=== PATIENT | male | born 1990 | race Two or more races ===

== ENCOUNTER 2025-05-11 13:20 | Day surgery (SDC) | payer BC, SELFPAY ==
--- NOTE | 2025-05-09 15:52 | EKG_ITS ---
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
[2025-05-09 17:45] LABS: Partial Thromboplastin Time 28.8 Seconds (22.0-36.0); Prothrombin Time 11.3 Seconds (9.0-12.2)
[2025-05-09 17:52] LABS: Alanine Aminotransferase 26 U/L (10-49); Albumin, Serum 4.6 gm/dL (3.5-5.0); Alkaline Phosphatase 79 U/L (46-116); Anion Gap 9 (7-16); BUN/Creatinine Ratio 13 Ratio (12-20); Bilirubin,Total 0.8 mg/dL (0.3-1.2); Blood Urea Nitrogen 14 mg/dL (9-23); Calcium 9.4 mg/dL (8.3-10.6); Calcium (Corrected) 9.4 mg/dL (8.5-10.1); Carbon Dioxide 27.3 mMol/L (20.0-31.0); Chloride 105 mMol/L (98-107); Creatinine (Component) 1.1 mg/dL (0.6-1.3); Globulin 2.3 gm/dL (2.3-3.5); Glucose 93 mg/dL (74-106); Osmolality,Calculated 281 (275-295); Potassium 4.1 mMol/L (3.4-5.1); Sodium 141 mMol/L (136-145); Total Protein 6.9 gm/dL (5.7-8.2); eGFR > 60 See Note
[2025-05-10 15:51] VITALS: BMI 30.4
[2025-05-11 13:50] VITALS: BP 129/69; PULSE 100; RESP 20; TEMP 36.7; O2SAT 96; BMI 29.0
[2025-05-11] MEDS: RINGERS LACTATED 1000 ML 1,000 ML 20 ML IV (14:13)
[2025-05-11] MEDS: LIDOCAINE JELLY 2% (Urojet) 10 ML TUBE TOP (15:31)
[2025-05-11 15:33] VITALS: BP 120/68; PULSE 112; RESP 20; TEMP 37; O2SAT 96
[2025-05-11 15:43] VITALS: BP 115/78; PULSE 105; RESP 17; O2SAT 98
[2025-05-11 15:53] VITALS: BP 127/69; PULSE 106; RESP 20; O2SAT 97
[2025-05-11 16:03] VITALS: BP 118/72; PULSE 108; RESP 19; O2SAT 98
[2025-05-15 07:08] LABS: HCG Total,Male (Tumor Marker)* <5 mIU/mL (<5)
== END 2025-05-11 16:13 | disposition home or self-care (01) ==
PROVIDERS: PCP Internal Medicine; Referring Provider Specialist; Visit Provider Specialist
PROC: 0DBE8ZX Excision of Large Intestine, Via Natural or Artificial Opening Endoscopic, Diagnostic (ICD-10-PCS; CPT 45380; principal; 2025-05-11 14:15)
PROC: (CPT 43239; 2025-05-11 14:15)
DX: K64.1 Second degree hemorrhoids (principal); Z01.810 Encounter for preprocedural cardiovascular examination; K29.50 Unspecified chronic gastritis without bleeding
CPT/HCPCS: 46221; 45378; 36415; 80053; 84702; 85610; 85730; 93005; A4649; J7120